=== PATIENT | male | born 1950 | race Caucasian/White ===

== ENCOUNTER 2024-01-31 13:45 | Emergency (ER) | payer OTHER, SELFPAY ==
--- NOTE | ~2024-01-31 | XR_ITS ---
EXAMINATION: XR CHEST CLINICAL INFORMATION: Positive Covid, shortness of breath COMPARISON: Chest radiograph 10/07/2016 TECHNIQUE: 2 views of the chest were obtained. FINDINGS: Lungs are adequately expanded. No focal consolidation. Streaky linear left lung base opacity. No pleural effusion, overt edema or pneumothorax. The cardiomediastinal silhouette is unchanged. Aortic arch calcifications. Degenerative changes of thoracic spine. XR/XR chest 2V IMPRESSION: No focal consolidation. Streaky linear left lung base opacity favored to represent atelectasis.
[2024-01-31 14:18] VITALS: BP 147/76; PULSE 106; RESP 20; TEMP 37.4; O2SAT 94; BMI 39.3
--- NOTE | 2024-01-31 14:18 | ED_ITS ---
HPI - General Adult General Chief complaint: Upper Respiratory Symptoms Stated complaint: covid at home test +, symptomatic Related Data Allergies Allergy/AdvReac Type Severity Reaction Status Date / Time No Known Allergies Allergy Mild NONE Verified 01/31/24 14:21 [facility] Social History Social History Advance Directives: No Advance Directives Information Provided: No Do you have a plan to hurt others: No Plan Physical Exam ED Vital Signs: Vital Signs - 24 hr 01/31/24 14:18 Temperature 99.3 F Pulse Rate 106 H Respiratory Rate 20 Blood Pressure 147/76 H Pulse Oximetry 94 Oxygen Delivery Method Room Air BMI result Body Mass Index 39.3 Course Course Course Narrative: This is a Rapid Medical Examination (RME) performed by Anusha Dillon PA-C in triage. Full HPI, ROS, assessment and treatment plan per primary provider in the Main ED. 73 yo male here with cough and shortness of breath after testing positive for covid this morning. his was recently in [place] and tested positive for covid when returning home. he denies travel or long car rides himself. lungs are CTA b/l however is satting 94% on RA. slightly tachy Plan: labs, CXR, ekg ordered Reevaluation(s) Reevaluation #1: Patient left the ED without completing treatment. Medical Decision Making Lab Data 01/31/24 14:49 01/31/24 14:49 Labs: Lab Results 01/31/24 Range/Units 14:49 WBC 8.2 (4.8-10.8) X10*3/uL RBC 5.79 (4.60-5.80) X10*6/uL Hgb 14.0 (14.0-18.0) g/dl Hct 44.1 (42.0-52.0) % MCV 76.2 L (80.0-98.0) fL MCH 24.2 L (27.0-33.0) pg MCHC 31.7 (31.0-36.0) g/dl RDW 14.6 (11.0-16.0) % Plt Count 252 (160-400) X10*3/uL MPV 8.8 L (9.4-12.4) fL Immature Gran % (Auto) 0.2 (0.0-0.4) % Neut % (Auto) 71.2 (45-73) % Lymph % (Auto) 16.6 L (20-40) % [place] % (Auto) 11.3 H (2-11) % Eos % (Auto) 0.5 (0-4) % Baso % (Auto) 0.2 (0-2) % Lymph # (Auto) 1.4 (1.2-4.9) X10*3/uL [place] # (Auto) 0.9 (0.1-1.2) X10*3/uL Eos # (Auto) 0.0 (0.0-0.4) X10*3/uL Baso # (Auto) 0.0 (0.0-0.2) X10*3/uL Abs Immat Gran (auto) 0.02 (0.00-0.03) X10*3/uL Absolute Neuts (auto) 5.8 (2.0-8.3) x10*3/uL Absolute Nucleated RBC 0.000 (0.0-0.012) X10*3/uL Nucleated RBC % (auto) 0.0 (0.0-0.2) /100WBC PT 12.9 (11.1-13.3) SEC INR 1.1 (0.9-1.1) Sodium 139 (135-145) mmol/L Potassium 4.0 (3.3-5.1) mmol/L Chloride 105 (96-108) mmol/L Carbon Dioxide 24 (22-29) mmol/L Anion Gap 14 (12-20) BUN 11 (9-16) mg/dL Creatinine 0.78 (0.5-1.4) mg/dL Estim Creat Clear Calc 118.2 Estimated GFR > 60 Random Glucose 129 H (60-115) mg/dL Calcium 9.6 (8.4-10.2) mg/dL Magnesium 2.0 (1.6-2.6) mg/dL Total Bilirubin 0.7 (0.0-1.0) mg/dL AST 24 (5-37) U/L ALT 34 (0-40) U/L Alkaline Phosphatase 95 (39-117) U/L Total Protein 7.5 (6.5-8.0) g/dL Albumin 4.3 (3.5-5.0) g/dL Lipase 35 (8-78) U/L Discharge Plan Discharge Clinical Impression: COVID-19 Patient Disposition: Left W/O Completing Treatment
--- NOTE | 2024-01-31 14:21 | ECG_ITS ---
Test Reason : TACHYCARDIA Blood Pressure : / mmHG Vent. Rate : 103 BPM Atrial Rate : 103 BPM P-R Int : 264 ms QRS Dur : 144 ms QT Int : 376 ms P-R-T Axes : 000 -69 000 degrees QTc Int : 492 ms Sinus tachycardia with 1st degree A-V block Left axis deviation Right bundle branch block Inferior infarct (cited on or before 07-OCT-2016) Abnormal ECG When compared with ECG of 07-OCT-2016 17:30, DC interval has increased Borderline criteria for Lateral infarct are no longer Present Referred By: Della Dillon Electronically Signed By:BRAEDEN MACIAS MD
[2024-01-31 14:54] LABS: MANUAL DIFF FLAG NO
[2024-01-31 14:55] LABS: Basophils Percent Auto 0.2 % (0-2); Eosinophils Percent Auto 0.5 % (0-4); Hematocrit 44.1 % (42.0-52.0); Imm Gran Abs Auto 0.02 X10*3/uL (0.00-0.03); Imm Gran Pct Auto 0.2 % (0.0-0.4); Lymphocytes Absolute Auto 1.4 X10*3/uL (1.2-4.9); Lymphocytes Percent Auto 16.6 % (20-40); Mean Corpuscular HGB Conc 31.7 g/dl (31.0-36.0); Mean Corpuscular Hemoglobin 24.2 pg (27.0-33.0); Mean Corpuscular Volume 76.2 fL (80.0-98.0); Mean Platelet Volume 8.8 fL (9.4-12.4); Monocytes Absolute Auto 0.9 X10*3/uL (0.1-1.2); Monocytes Percent Auto 11.3 % (2-11); Neutrophils Absolute Auto 5.8 x10*3/uL (2.0-8.3); Neutrophils Percent Auto 71.2 % (45-73); Platelet Count 252 X10*3/uL (160-400); Red Blood Count 5.79 X10*6/uL (4.60-5.80); Red Cell Distribution Width 14.6 % (11.0-16.0); White Blood Count 8.2 X10*3/uL (4.8-10.8)
[2024-01-31 15:03] LABS: INTERNATIONAL NORM RATIO 1.1 (0.9-1.1); Prothrombin Time 12.9 SEC (11.1-13.3)
[2024-01-31 15:09] LABS: Alanine Aminotransferase 34 U/L (0-40); Albumin Level 4.3 g/dL (3.5-5.0); Alkaline Phosphatase 95 U/L (39-117); Anion Gap 14 (12-20); Aspartate Amino Transferase 24 U/L (5-37); Bilirubin Total 0.7 mg/dL (0.0-1.0); Blood Urea Nitrogen 11 mg/dL (9-16); Calcium 9.6 mg/dL (8.4-10.2); Carbon Dioxide 24 mmol/L (22-29); Chloride 105 mmol/L (96-108); Creatinine Clr Calc Pharmacy 118.2; Estimated Glomerular Filt Rate > 60; Glucose Random 129 mg/dL (60-115); Lipase 35 U/L (8-78); Sodium 139 mmol/L (135-145); Total Protein 7.5 g/dL (6.5-8.0)
--- NOTE | 2024-01-31 16:33 | PC.NURSE ---
charge came into triage approx 1 hr ago asking if this patient could be discharged from triage as they were upset having to wait, triage provider stated she was not comfortable discharging the patient because they were requesting a medication provider was not comfortable prescribing from triage. approx [phone] patients was irate over the wait and stormed out of the ed. patient was apologetic of wifes behavior and walked of the ED following his to the vehicle. upon seeing the patient exit with , provider was notified of LWCT and provider signed note. Patient then returned into the ED approx 2 minutes later and is opting to wait.
--- NOTE | 2024-01-31 17:08 | PC.NURSE ---
pts again went to patient registration irate over having to wait, stating they have been waiting longer than 5 hours. pt has not waited this duration of time, an explanation was given to the family that if a patient comes in acutely ill that they are triaged and seen in order of severity so at times others would go in first. and patient left again without completing treatment.
== END 2024-01-31 17:11 | disposition left against medical advice (07) ==
PROVIDERS: Physician Assistant Medical; Emergency Provider Emergency Medicine; PCP Family Medicine
DX: U07.1 COVID-19 (principal); R05.9 Cough, unspecified; R06.02 Shortness of breath
CPT/HCPCS: 36415; 71046; 80053; 83690; 83735; 85025; 85610; 93005; 99283

== ENCOUNTER → 2024-01-31 14:21 | Outpatient (BNV) | payer OTHER, SELFPAY | PROVIDERS: Emergency Provider Emergency Medicine; PCP Family Medicine; Visit Provider Internal Medicine Cardiovascular Disease | DX: R94.31 Abnormal electrocardiogram [ECG] [EKG] (principal) | CPT/HCPCS: 93010 ==